=== PATIENT | female | born 1950 | race Caucasian/White ===

== ENCOUNTER → 2018-06-26 | Outpatient (CLI) | payer MEDICARE | LOC: M.RAD 10:52 | DX: Z12.31 Encounter for screening mammogram for malignant neoplasm of breast (principal) ==

== ENCOUNTER → 2019-11-15 | Outpatient (CLI) | payer MEDICARE | LOC: M.RAD 09:20 | DX: M81.0 Age-related osteoporosis without current pathological fracture (principal) ==

== ENCOUNTER → 2021-02-01 | Outpatient (CLI) | payer MEDICARE | LOC: M.ULTRA 11:00 | PROVIDERS: ATTEND Family Medicine | DX: M79.605 Pain in left leg (principal); R60.9 Edema, unspecified ==

== ENCOUNTER → 2021-02-06 | Outpatient (CLI) | payer MEDICARE | LOC: M.RAD 13:50 | PROVIDERS: ATTEND Family Medicine | DX: M85.862 Other specified disorders of bone density and structure, left lower leg (principal); M79.605 Pain in left leg ==

== ENCOUNTER → 2021-02-13 | Outpatient (CLI) | payer MEDICARE | LOC: M.MRI 11:47 | PROVIDERS: ATTEND Family Medicine | DX: M23.222 Derangement of posterior horn of medial meniscus due to old tear or injury, left knee (principal); M25.562 Pain in left knee ==